=== PATIENT | male | born 1970 | race Hispanic/Latino ===

== ENCOUNTER 2018-04-06 16:44 | Emergency (ER) | payer MEDICARE ==
[2018-04-06 18:06] LABS: RAPID GROUP A STREP NEGATIVE (NEGATIVE)
== END 2018-04-06 18:23 | disposition home or self-care (01) ==
LOC: EDH 16:44
DX: J06.9 Acute upper respiratory infection, unspecified (principal)
CPT/HCPCS: 87804; 87880

== ENCOUNTER 2018-04-17 18:58 | Emergency (ER) | payer MEDICARE ==
[2018-04-17 19:23] LABS: APPEARANCE,URINE Clear (CLEAR); BILIRUBIN,URINE Negative (NEGATIVE); COLOR,URINE Yellow (YELLOW); GLUCOSE, URINE (UA) Negative (NEGATIVE); KETONES,URINE Negative (NEGATIVE); LEUKOCYTE ESTERASE ,URINE Negative (NEGATIVE); NITRATE,URINE Negative (NEGATIVE); OCCULT BLOOD,URINE Negative (NEGATIVE); PROTEIN,URINE POS 1+ (NEGATIVE)
[2018-04-17 19:36] LABS: HYALINE CASTS, URINE 0-1 /LPF (0-1 /LPF)
[2018-04-17 19:37] LABS: FINE GRANULAR CASTS,URINE 0-2 /LPF (None Seen)
[2018-04-17 19:38] LABS: AMORPHOUS SEDIMENT,UR Trace /LPF (None Seen)
[2018-04-17 19:39] LABS: BASOPHILS % (AUTO) 0.2 % (0.0-5.0); EOSINOPHILS % (AUTO) 0.6 % (0.0-8.0); HEMATOCRIT 45.2 % (42-54); LYMPHOCYTES % (AUTO) 4.8 % (21.0-51.0); MEAN CORPUSCULAR HEMOGLOBIN 31.5 pg (27.0-33.0); MEAN CORPUSCULAR HGB CONC 34.5 g/dL (32.0-36.0); MEAN CORPUSCULAR VOLUME 91.2 fL (79-99); MONOCYTES % (AUTO) 3.5 % (3.0-13.0); NEUTROPHILS % (AUTO) 90.9 % (40.0-77.0); PLATELET COUNT (AUTO) 232 K/uL (130-400); RED BLOOD CELL COUNT(AUTO) 4.96 MIL/uL (4.50-6.20); RED CELL DISTRIBUTION WIDTH 12.9 % (11.0-15.5); WHITE BLOOD COUNT (AUTO) 10.5 K/uL (4.8-10.8)
[2018-04-17 19:39] LABS: BACTERIA,URINE Many /HPF (None Seen)
[2018-04-17 19:40] LABS: MUCUS,URINE Moderate LPF (None Seen); RBC,URINE 0-1 /HPF (0-1)
[2018-04-17 20:05] LABS: POTASSIUM 3.5 mmol/L (3.5-5.1)
[2018-04-17 20:11] LABS: BILIRUBIN,TOTAL 0.7 mg/dL (0.2-1.0); TOTAL PROTEIN, SERUM 7.9 g/dL (6.0-8.3)
[2018-04-17] MEDS ORDERED: SODIUM CHLORIDE 0.9% 1000ML 1,000 ML IV ONE (20:15)
[2018-04-17] MEDS ORDERED: ONDANSETRON HCL 4 MG/2 ML VIAL ONE (20:15)
[2018-04-17] MEDS ORDERED: FAMOTIDINE/PF 20 MG/2 ML VIAL IV ONE (20:26)
[2018-04-17] MEDS ORDERED: ACETAMINOPHEN 325 MG TAB ONE (20:26)
[2018-04-17] MEDS ORDERED: LIDOCAINE HCL 2% VISCOUS 15 ML UDCUP ONE (20:27)
[2018-04-17] MEDS ORDERED: MAG HYDROX/AL HYDROX/SIMETH ES 30 ML SUSP UDCUP ONE (20:27)
== END 2018-04-18 00:05 | disposition home or self-care (01) ==
LOC: EDH 18:58
DX: K29.00 Acute gastritis without bleeding (principal); B96.81 Helicobacter pylori [H. pylori] as the cause of diseases classified elsewhere; I10 Essential (primary) hypertension; H91.8X9 Other specified hearing loss, unspecified ear; Z98.890 Other specified postprocedural states
CPT/HCPCS: 36415; 80053; 81001; 82150; 83690; 85025; 86677; 93005; 96361; 96374; 96375; 99285; J2405; J3490; J7030

== ENCOUNTER 2019-03-22 14:52 | Observation (INO) | payer MEDICARE ==
[~2019-03-22] VITALS: Ht 170.2 cm; Wt 114.3 kg
[2019-03-22] MEDS ORDERED: ASPIRIN 325 MG TABLET ONE (15:03)
[2019-03-22 15:08] LABS: BASOPHILS % (AUTO) 0.5 % (0.0-5.0); EOSINOPHILS % (AUTO) 3.5 % (0.0-8.0); HEMATOCRIT 42.3 % (42-54); LYMPHOCYTES % (AUTO) 27.1 % (21.0-51.0); MEAN CORPUSCULAR HEMOGLOBIN 31.7 pg (27.0-33.0); MEAN CORPUSCULAR HGB CONC 35.2 g/dL (32.0-36.0); MEAN CORPUSCULAR VOLUME 89.9 fL (79-99); NEUTROPHILS % (AUTO) 61.9 % (40.0-77.0); PLATELET COUNT (AUTO) 243 K/uL (130-400); RED CELL DISTRIBUTION WIDTH 12.6 % (11.0-15.5); WHITE BLOOD COUNT (AUTO) 8.4 K/uL (4.8-10.8)
[2019-03-22] MEDS ORDERED: NITROGLYCERIN 0.4 MG SL TAB SL ONE (15:10)
[2019-03-22 15:20] LABS: CREATININE 0.9 mg/dL (0.5-1.5); POTASSIUM 3.5 mmol/L (3.5-5.1)
[2019-03-22 15:23] LABS: ALBUMIN 3.8 g/dL (3.5-5.0); BILIRUBIN,TOTAL 0.6 mg/dL (0.2-1.0); TOTAL PROTEIN, SERUM 7.6 g/dL (6.0-8.3)
[2019-03-22] MEDS ORDERED: SODIUM CHLORIDE 0.9% 500ML 500 ML IV ONE (15:33)
[2019-03-22] MEDS ORDERED: MORPHINE SULFATE 2 MG/ML 1ML SYG IV PRN (17:15)
[2019-03-22] MEDS ORDERED: MORPHINE SULFATE 4 MG/1ML SYG IV PRN (17:15)
[2019-03-22] MEDS ORDERED: NITROGLYCERIN 0.4 MG SL TAB SL PRN (17:15)
[2019-03-22] MEDS ORDERED: HYDRALAZINE HCL 20 MG/ML VIAL IV PRN (17:15)
[2019-03-22 17:41] LABS: CHOLESTEROL 200 mg/dL (<200); HDL CHOLESTEROL 40 mg/dL (29-71); LDL DIRECT 138 mg/dL (0-99); TRIGLYCERIDES 134 mg/dL (30-200)
[2019-03-22] MEDS ORDERED: METOPROLOL TARTRATE 25 MG TAB ONE (23:22)
[2019-03-22] MEDS ORDERED: FAMOTIDINE/PF 20 MG/2 ML VIAL IV ONE (23:22)
[2019-03-23 05:37] LABS: BASOPHILS % (AUTO) 0.3 % (0.0-5.0); EOSINOPHILS % (AUTO) 4.5 % (0.0-8.0); HEMATOCRIT 39.7 % (42-54); MEAN CORPUSCULAR HEMOGLOBIN 31.9 pg (27.0-33.0); MEAN CORPUSCULAR HGB CONC 35.4 g/dL (32.0-36.0); MEAN CORPUSCULAR VOLUME 90.1 fL (79-99); MONOCYTES % (AUTO) 8.8 % (3.0-13.0); NEUTROPHILS % (AUTO) 50.4 % (40.0-77.0); NUCLEATED RED BLOOD CELLS 0.1 % (0.0-0.19); PLATELET COUNT (AUTO) 228 K/uL (130-400); RED BLOOD CELL COUNT(AUTO) 4.41 MIL/uL (4.50-6.20); RED CELL DISTRIBUTION WIDTH 12.7 % (11.0-15.5); WHITE BLOOD COUNT (AUTO) 7.8 K/uL (4.8-10.8)
[2019-03-23 05:48] LABS: ALBUMIN 3.5 g/dL (3.5-5.0); BILIRUBIN,TOTAL 0.5 mg/dL (0.2-1.0); CREATININE 0.8 mg/dL (0.5-1.5); POTASSIUM 3.7 mmol/L (3.5-5.1); TOTAL PROTEIN, SERUM 7.1 g/dL (6.0-8.3)
[2019-03-23] MEDS ORDERED: HYDRALAZINE HCL 20 MG/ML VIAL ONE (06:40)
[2019-03-23] MEDS ORDERED: MORPHINE SULFATE 2 MG/ML 1ML SYG ONE (06:54)
[2019-03-23] MEDS ORDERED: METOPROLOL TARTRATE 25 MG TAB ONE (07:19)
[2019-03-23] MEDS ORDERED: ATORVASTATIN CALCIUM 40 MG TABLET ONE (07:19)
[2019-03-23] MEDS ORDERED: ENOXAPARIN SODIUM 40 MG/0.4 ML SYRINGE SQ ONE (07:19)
[2019-03-23] MEDS ORDERED: FAMOTIDINE/PF 20 MG/2 ML VIAL IV ONE (07:19)
[2019-03-23 08:28] VITALS: BP 154/90
[2019-03-23] MEDS: FAMOTIDINE/PF 20 MG/2 ML VIAL IV SCH ×2 (08:49→21:01)
[2019-03-23] MEDS: ATORVASTATIN CALCIUM 40 MG TABLET PO SCH (08:49)
[2019-03-23] MEDS: METOPROLOL TARTRATE 25 MG TAB PO SCH ×2 (08:49→21:01)
[2019-03-23] MEDS: ENOXAPARIN SODIUM 40 MG/0.4 ML SYRINGE SQ SCH (08:49)
--- NOTE | 2019-03-23 11:12 | NUR ---
DR. DODD IN ROOM WITH PT. AND PT.'S SON; SON INTERPRETING FOR DR. DODD.
[2019-03-23] MEDS ORDERED: IBUP-2070 PO (11:13)
[2019-03-23] MEDS: IBUPROFEN 600 MG TABLET PO PRN (11:41)
[2019-03-23 11:51] VITALS: BP 154/105
[2019-03-23 12:48] VITALS: BP 174/87
--- NOTE | 2019-03-23 13:02 | NUR ---
cm note met with patient and with son RG, pt is deaf and mute, but son uses sign language for translating, pt independent with ambulation and adls, no DME. no services at home. pt drives. goes to [facility] for followup. and dc plan is back to same home setting feels safe to [place] has sons that assist with any needs. pt has a text only phone, [phone] if needed. Addendum: 03/23/19 at 1304 by DAMI LOZANO CM Amended: Links added.
[2019-03-23] MEDS ORDERED: METOPROLOL TARTRATE 25 MG TAB PO SCH (13:15)
[2019-03-23] MEDS ORDERED: LISI-613 PO (13:58)
--- NOTE | 2019-03-23 13:58 | NUR ---
PER PT.'S SISTER AT BEDSIDE, PT. "TAKES LISINOPRIL 20MG TWO TIMES A DAY. THAT'S THE ONLY MEDICATION HE TAKES." HOME MED LIST UPDATED.
[2019-03-23] MEDS ORDERED: KETOROLAC TROMETHAMINE 30MG/ML IV SCH (15:00)
[2019-03-23] MEDS: LISINOPRIL 20 MG TABLET PO SCH ×2 (15:16→21:02)
[2019-03-23 15:32] VITALS: BP 140/89
[2019-03-23 19:52] VITALS: BP 126/70
--- NOTE | 2019-03-23 20:30 | NUR ---
Assessment Patient AOX3, and ambulatory. Patient sister and pt son at bedside. Patient is able to read and write on paper. Patient states currently has no pain and feels good. Patient reinforced to use call light if needs assistance and verbalizes understanding.
[2019-03-23] MEDS ORDERED: LISINOPRIL 20 MG TABLET PO SCH (21:00)
[2019-03-23 23:26] VITALS: BP 148/97
[2019-03-24] MEDS: IBUPROFEN 600 MG TABLET PO PRN (01:01)
--- NOTE | 2019-03-24 01:07 | NUR ---
Pain Patient stated has right chest pain at 1255am scale of 3 from 1-10. Gave Ibuprofen as per pain range. Will follow up in 1 hr. Patient was observed eating outside food left by family at bedside while watching television. I advised patient not to be eating outside food and to follow a cardiac healthy diet from now on. Patient verbalizes understanding of instructions.
[2019-03-24 03:32] VITALS: BP 119/69
[2019-03-24 05:50] LABS: BASOPHILS % (AUTO) 0.5 % (0.0-5.0); EOSINOPHILS % (AUTO) 3.7 % (0.0-8.0); HEMATOCRIT 40.5 % (42-54); LYMPHOCYTES % (AUTO) 35.2 % (21.0-51.0); MEAN CORPUSCULAR HEMOGLOBIN 31.9 pg (27.0-33.0); MEAN CORPUSCULAR HGB CONC 35.1 g/dL (32.0-36.0); MEAN CORPUSCULAR VOLUME 90.9 fL (79-99); NEUTROPHILS % (AUTO) 51.6 % (40.0-77.0); PLATELET COUNT (AUTO) 238 K/uL (130-400); RED BLOOD CELL COUNT(AUTO) 4.46 MIL/uL (4.50-6.20); WHITE BLOOD COUNT (AUTO) 8.4 K/uL (4.8-10.8)
[2019-03-24 06:06] LABS: ALBUMIN 3.6 g/dL (3.5-5.0); BILIRUBIN,TOTAL 0.6 mg/dL (0.2-1.0); POTASSIUM 3.9 mmol/L (3.5-5.1); TOTAL PROTEIN, SERUM 7.3 g/dL (6.0-8.3)
[2019-03-24 07:00] VITALS: BP 158/97
[2019-03-24] MEDS: ATORVASTATIN CALCIUM 40 MG TABLET PO SCH (10:23)
[2019-03-24] MEDS: METOPROLOL TARTRATE 25 MG TAB PO SCH (10:23)
[2019-03-24] MEDS: ENOXAPARIN SODIUM 40 MG/0.4 ML SYRINGE SQ SCH (10:23)
[2019-03-24] MEDS: LISINOPRIL 20 MG TABLET PO SCH (10:23)
[2019-03-24] MEDS: FAMOTIDINE/PF 20 MG/2 ML VIAL IV SCH (10:23)
[2019-03-24 11:00] VITALS: BP 167/87
[2019-03-24] MEDS ORDERED: PRAV40TA3 PO (11:11)
[2019-03-24] MEDS ORDERED: METO25TA6 PO (11:11)
--- NOTE | 2019-03-24 12:50 | NUR ---
DISCHARGE INSTRUCTIONS/INFORMATION GIVEN TO PATIENT AND SON FROYLAN. BOTH UNDERSTOOD NEW MEDICATIONS PRESCRIBED, PROPER DIET, S/S TO MONITOR FOR,WHEN TO CALL MD, AND FOLLOW UP APPOINTMENT. PIV REMOVED. TIP WAS INTACT. TELE PACK REMOVED AND RETURNED. ALL BELONGINGS WERE PACKED BY PATIENT. NEW PRESCRIPTIONS WERE INCLUDED IN DISCHARGE PACKET.
== END 2019-03-24 13:20 | disposition home or self-care (01) ==
LOC: EDH 14:52 → EDHIP 16:55 → INTOOBSV 16:55 → 4BH 20:54 → EDHIP 22:31 → 2DH 03-23 08:34
PROVIDERS: ADMIT Family Medicine; ATTEND Family Medicine
DX: R07.89 Other chest pain (principal); R06.09 Other forms of dyspnea; I10 Essential (primary) hypertension; M94.0 Chondrocostal junction syndrome [Tietze]; R73.9 Hyperglycemia, unspecified; B34.9 Viral infection, unspecified; H91.3 Deaf nonspeaking, not elsewhere classified; Z79.899 Other long term (current) drug therapy
CPT/HCPCS: 36415 ×3; 71045; 80053 ×3; 80061; 82550; 83690; 83880; 84484 ×3; 85025 ×3; 85378; 87804 ×2; 93005 ×2; 96372; 96374; 96375; 96376; 99284; G0378 ×26; J0360 ×2; J1650 ×2; J1885; J3490 ×4; J7040

== ENCOUNTER 2019-07-19 17:30 | Emergency (ER) | payer MEDICARE ==
[~2019-07-19 17:30] MED LIST: IBUP-2070 PO; LISI-613 PO; METO25TA6 PO; PRAV40TA3 PO
[2019-07-19 18:27] LABS: BASOPHILS % (AUTO) 0.2 % (0.0-5.0); EOSINOPHILS % (AUTO) 1.9 % (0.0-8.0); HEMATOCRIT 41.7 % (42-54); LYMPHOCYTES % (AUTO) 25.9 % (21.0-51.0); MEAN CORPUSCULAR HEMOGLOBIN 30.8 pg (27.0-33.0); MEAN CORPUSCULAR HGB CONC 34.8 g/dL (32.0-36.0); MEAN CORPUSCULAR VOLUME 88.5 fL (79-99); NEUTROPHILS % (AUTO) 61.6 % (40.0-77.0); PLATELET COUNT (AUTO) 269 K/uL (130-400); RED BLOOD CELL COUNT(AUTO) 4.71 MIL/uL (4.50-6.20); RED CELL DISTRIBUTION WIDTH 12.1 % (11.0-15.5); WHITE BLOOD COUNT (AUTO) 10.5 K/uL (4.8-10.8)
[2019-07-19 18:30] LABS: APPEARANCE,URINE Clear (CLEAR); BILIRUBIN,URINE Negative (NEGATIVE); COLOR,URINE Yellow (YELLOW); GLUCOSE, URINE (UA) Negative (NEGATIVE); KETONES,URINE Negative (NEGATIVE); LEUKOCYTE ESTERASE ,URINE Negative (NEGATIVE); NITRATE,URINE Negative (NEGATIVE); OCCULT BLOOD,URINE Negative (NEGATIVE); PH,URINE 5.5 (5.0-8.0); PROTEIN,URINE Trace mg/dL (NEGATIVE)
[2019-07-19 18:35] LABS: CREATININE 1.1 mg/dL (0.5-1.5); POTASSIUM 3.2 mmol/L (3.5-5.1)
[2019-07-19 18:38] LABS: INR 0.99 (0.85-1.15); PROTHROMBIN TIME 10.4 SEC (9.6-11.6)
[2019-07-19 18:39] LABS: BILIRUBIN,TOTAL 0.5 mg/dL (0.2-1.0); TOTAL PROTEIN, SERUM 7.6 g/dL (6.0-8.3)
[2019-07-19 18:39] LABS: AMPHET/METH SCREEN,URINE NEGATIVE (NEGATIVE); BARBITURATE SCREEN, URINE NEGATIVE (NEGATIVE); BENZODIAZEPINES SCREEN,URINE NEGATIVE (NEGATIVE); CANNABINOID SCREEN,URINE NEGATIVE (NEGATIVE); COCAINE SCREEN,URINE NEGATIVE (NEGATIVE); OPIATE SCREEN,URINE NEGATIVE (NEGATIVE); PHENCYCLIDINE SCREEN,URINE NEGATIVE (NEGATIVE)
[2019-07-19 19:09] LABS: BACTERIA,URINE None Seen /HPF (None Seen); MUCUS,URINE Moderate LPF (None Seen); RBC,URINE None Seen /HPF (0-1); SQUAMOUS EPITHELIAL CELL,UR Few /HPF (0-2); WBC,URINE None Seen /HPF (0-1)
[2019-07-19 19:26] LABS: B-TYPE NATRIURETIC PEPTIDE 7 pg/mL (0-100)
[2019-07-19] MEDS ORDERED: DiphenhydrAMINE HCL 50 MG/ML VIAL ONE (20:14)
[2019-07-19] MEDS ORDERED: KETOROLAC TROMETHAMINE 30MG/ML ONE (20:14)
[2019-07-19] MEDS ORDERED: POTASSIUM CHLORIDE 10% ELIXIR 20 MEQ/15 ML UDCUP ONE (20:14)
== END 2019-07-19 21:24 | disposition home or self-care (01) ==
LOC: EDH 17:30
DX: I10 Essential (primary) hypertension (principal); R51 Headache; Z98.890 Other specified postprocedural states
CPT/HCPCS: 36415; 70450; 71045; 80053; 80305; 81001; 82550; 83880; 84484; 85025; 85610; 85730; 87804 ×2; 93005; 96374; 96375; 99285; J1200; J1885

== ENCOUNTER 2019-09-14 00:38 | Emergency (ER) | payer MEDICARE ==
[2019-09-14] MEDS ORDERED: ONDANSETRON HCL 4 MG/2 ML VIAL ONE (01:06)
[2019-09-14] MEDS ORDERED: ACETAMINOPHEN 325 MG TAB ONE (01:06)
[2019-09-14] MEDS ORDERED: LIDOCAINE 5% TOPICAL PATCH TP ONE (01:09)
[2019-09-14] MEDS ORDERED: KETOROLAC TROMETHAMINE 60 MG/2 ML VIAL ONE (01:09)
[2019-09-14] MEDS ORDERED: CYCLOBENZAPRINE HCL 10 MG TABLET ONE (01:10)
[2019-09-14 01:12] LABS: BASOPHILS % (AUTO) 0.1 % (0.0-5.0); EOSINOPHILS % (AUTO) 2.1 % (0.0-8.0); HEMATOCRIT 41.4 % (42-54); LYMPHOCYTES % (AUTO) 34.2 % (21.0-51.0); MEAN CORPUSCULAR HEMOGLOBIN 31.1 pg (27.0-33.0); MEAN CORPUSCULAR HGB CONC 35.7 g/dL (32.0-36.0); NEUTROPHILS % (AUTO) 54.5 % (40.0-77.0); PLATELET COUNT (AUTO) 248 K/uL (130-400); RED BLOOD CELL COUNT(AUTO) 4.76 MIL/uL (4.50-6.20)
[2019-09-14 01:14] LABS: BILIRUBIN,URINE Negative (NEGATIVE); COLOR,URINE Yellow (YELLOW); GLUCOSE, URINE (UA) Negative (NEGATIVE); KETONES,URINE Negative (NEGATIVE); LEUKOCYTE ESTERASE ,URINE Negative (NEGATIVE); NITRATE,URINE Negative (NEGATIVE); OCCULT BLOOD,URINE Negative (NEGATIVE); PH,URINE 5.5 (5.0-8.0); PROTEIN,URINE Negative (NEGATIVE)
[2019-09-14 01:20] LABS: APPEARANCE,URINE CLEAR (CLEAR)
[2019-09-14 01:23] LABS: CREATININE 0.9 mg/dL (0.5-1.5); POTASSIUM 3.7 mmol/L (3.5-5.1)
[2019-09-14 01:28] LABS: ALBUMIN 3.7 g/dL (3.5-5.0); BILIRUBIN,TOTAL 0.5 mg/dL (0.2-1.0); TOTAL PROTEIN, SERUM 7.7 g/dL (6.0-8.3)
== END 2019-09-14 03:43 | disposition home or self-care (01) ==
LOC: EDH 00:38
DX: E86.9 Volume depletion, unspecified (principal); R42 Dizziness and giddiness; F43.9 Reaction to severe stress, unspecified; I10 Essential (primary) hypertension
CPT/HCPCS: 36415; 70450; 80053; 81003; 84484; 85025; 93005; 96361; 96374; 99285; J1885; J2405

== ENCOUNTER 2020-03-12 16:28 | Emergency (ER) | payer OTHER ==
[2020-03-12] MEDS ORDERED: IBUPROFEN 600 MG TABLET ONE (16:50)
== END 2020-03-12 19:20 | disposition home or self-care (01) ==
LOC: EDH 16:28
DX: S63.592A Other specified sprain of left wrist, initial encounter (principal); I10 Essential (primary) hypertension; Z72.0 Tobacco use; W18.39XA Other fall on same level, initial encounter; Y93.01 Activity, walking, marching and hiking; Y92.511 Restaurant or cafe as the place of occurrence of the external cause; Y99.8 Other external cause status
CPT/HCPCS: 73110

== ENCOUNTER 2020-07-12 12:02 | Emergency (ER) | payer OTHER ==
[2020-07-12] MEDS ORDERED: KETOROLAC TROMETHAMINE 30MG/ML ONE (16:22)
[2020-07-12] MEDS ORDERED: ORPHENADRINE CITRATE 30 MG/ML ML ONE (16:22)
== END 2020-07-12 17:30 | disposition home or self-care (01) ==
LOC: EDH 12:02
DX: S40.011A Contusion of right shoulder, initial encounter (principal); I10 Essential (primary) hypertension; Z98.890 Other specified postprocedural states; X50.9XXA Other and unspecified overexertion or strenuous movements or postures, initial encounter; Y93.89 Activity, other specified; Y92.89 Other specified places as the place of occurrence of the external cause; Y99.8 Other external cause status
CPT/HCPCS: 73030; 96372 ×2; 99284; J1885; J2360

== ENCOUNTER 2020-11-23 12:36 | Emergency (ER) | payer OTHER ==
[~2020-11-23 12:36] MED LIST changes: -LISI-613 PO; +LISI20TA24 PO
[2020-11-23 13:14] LABS: BASOPHILS % (AUTO) 0.3 % (0.0-5.0); EOSINOPHILS % (AUTO) 2.4 % (0.0-8.0); HEMATOCRIT 40.8 % (42-54); LYMPHOCYTES % (AUTO) 32.7 % (21.0-51.0); MEAN CORPUSCULAR HEMOGLOBIN 31.4 pg (27.0-33.0); MEAN CORPUSCULAR HGB CONC 35.8 g/dL (32.0-36.0); MEAN CORPUSCULAR VOLUME 87.7 fL (79-99); NEUTROPHILS % (AUTO) 55.3 % (40.0-77.0); PLATELET COUNT (AUTO) 227 K/uL (130-400); RED BLOOD CELL COUNT(AUTO) 4.65 MIL/uL (4.50-6.20); RED CELL DISTRIBUTION WIDTH 12.3 % (11.0-15.5); WHITE BLOOD COUNT (AUTO) 7.4 K/uL (4.8-10.8)
[2020-11-23 13:31] LABS: CREATININE 0.8 mg/dL (0.5-1.5); POTASSIUM 3.3 mmol/L (3.5-5.1)
[2020-11-23 13:35] LABS: INR 1.04 (0.85-1.15); PROTHROMBIN TIME 11.3 SEC (9.6-11.6)
[2020-11-23 13:36] LABS: PARTIAL THROMBOPLASTIN TIME 28.5 SEC (26.3-35.5)
[2020-11-23 13:43] LABS: ALBUMIN 3.9 g/dL (3.5-5.0); BILIRUBIN,TOTAL 0.6 mg/dL (0.2-1.0); TOTAL PROTEIN, SERUM 7.5 g/dL (6.0-8.3)
== END 2020-11-23 16:37 | disposition home or self-care (01) ==
LOC: EDH 12:36
DX: G40.909 Epilepsy, unspecified, not intractable, without status epilepticus (principal); G83.84 Todd's paralysis (postepileptic); Z98.890 Other specified postprocedural states
CPT/HCPCS: 36415; 70450; 80053; 82948; 85025; 85610; 85730; 93005

== ENCOUNTER 2021-02-17 15:04 | Emergency (ER) | payer OTHER ==
[~2021-02-17] VITALS: Ht 167.6 cm; Wt 116.1 kg
[2021-02-17 15:06] VITALS: BP 165/94
[2021-02-17] MEDS ORDERED: HYDROCODONE/ACETAMINOPHEN 10/325 MG TAB ONE (15:49)
[2021-02-17] MEDS ORDERED: HYDROCODONE/ACETAMINOPHEN 10/325 MG TAB PO ONE (16:00)
[2021-02-17] MEDS ORDERED: NAPR-1180 PO (16:17)
== END 2021-02-17 16:49 | disposition home or self-care (01) ==
LOC: EDH 15:04
DX: S63.681A Other sprain of right thumb, initial encounter (principal); I10 Essential (primary) hypertension; G40.909 Epilepsy, unspecified, not intractable, without status epilepticus; Z79.899 Other long term (current) drug therapy; X50.0XXA Overexertion from strenuous movement or load, initial encounter; Y93.89 Activity, other specified; Y92.096 Garden or yard of other non-institutional residence as the place of occurrence of the external cause; Y99.0 Civilian activity done for income or pay
CPT/HCPCS: 29125; 73100; 73120

== ENCOUNTER 2021-07-22 09:10 | Emergency (ER) | payer OTHER ==
[~2021-07-22] VITALS: Ht 170.2 cm; Wt 117.9 kg
[~2021-07-22 09:10] MED LIST changes: +NAPR-1180 PO
[2021-07-22] MEDS ORDERED: METH4TAB3 PO (10:38)
[2021-07-22] MEDS ORDERED: IBUP-2070 PO (10:38)
[2021-07-22] MEDS ORDERED: D-ME118S47 PO (10:38)
[2021-07-22 10:55] VITALS: BP 138/76
== END 2021-07-22 11:00 | disposition home or self-care (01) ==
LOC: EDH 09:10
DX: U07.1 COVID-19 (principal); I10 Essential (primary) hypertension; Z79.1 Long term (current) use of non-steroidal anti-inflammatories (NSAID); Z79.899 Other long term (current) drug therapy
CPT/HCPCS: 87635; 87804 ×2; 99283; C9803

== ENCOUNTER 2021-11-20 06:14 | Emergency (ER) | payer OTHER ==
[~2021-11-20] VITALS: Ht 170.2 cm; Wt 120.7 kg
[~2021-11-20 06:14] MED LIST changes: +D-ME118S47 PO; +METH4TAB3 PO
[2021-11-20 08:40] VITALS: BP 128/68
[2021-11-20] MEDS ORDERED: IBUP-2070 PO (08:40)
[2021-11-20] MEDS ORDERED: CYCL10TA16 PO (08:40)
[2021-11-20] MEDS ORDERED: KETOROLAC 15MG/ML VIAL (15MG/ML) IM SCH (09:00)
[2021-11-20] MEDS ORDERED: LIDOCAINE 5% TOPICAL PATCH TP SCH (09:00)
[2021-11-20] MEDS ORDERED: CYCLOBENZAPRINE HCL 10 MG TABLET PO SCH (09:00)
== END 2021-11-20 08:45 | disposition home or self-care (01) ==
LOC: EDH 06:14
DX: M43.6 Torticollis (principal); M54.2 Cervicalgia; I10 Essential (primary) hypertension; Z98.890 Other specified postprocedural states; Z79.899 Other long term (current) drug therapy

== ENCOUNTER 2022-02-20 23:07 | Emergency (ER) | payer OTHER ==
[~2022-02-20] VITALS: Ht 170.2 cm; Wt 117.9 kg
[~2022-02-20 23:07] MED LIST changes: +CYCL10TA16 PO
[2022-02-20 23:09] VITALS: BP 156/83
[2022-02-20] MEDS ORDERED: ACETAMINOPHEN 500 MG TABLET ONE (23:48)
[2022-02-21] MEDS ORDERED: ACETAMINOPHEN 500 MG TABLET PO ONE
[2022-02-21] MEDS ORDERED: IBUP-2070 PO (00:15)
[2022-02-21] MEDS ORDERED: ACET-2079 PO (00:15)
== END 2022-02-21 00:23 | disposition home or self-care (01) ==
LOC: EDH 23:07
DX: M25.511 Pain in right shoulder (principal); E78.00 Pure hypercholesterolemia, unspecified; I10 Essential (primary) hypertension; Z79.1 Long term (current) use of non-steroidal anti-inflammatories (NSAID); Z79.52 Long term (current) use of systemic steroids; E66.9 Obesity, unspecified; Z68.41 Body mass index [BMI] 40.0-44.9, adult; X50.0XXA Overexertion from strenuous movement or load, initial encounter; Y93.89 Activity, other specified; Y92.89 Other specified places as the place of occurrence of the external cause; Y99.8 Other external cause status
CPT/HCPCS: 73030

== ENCOUNTER 2023-08-31 17:14 | Emergency (ER) | payer OTHER ==
[~2023-08-31] VITALS: Ht 170.2 cm; Wt 117.9 kg
[~2023-08-31 17:14] MED LIST changes: +ACET-2079 PO; +BROM118S48 PO; -D-ME118S47 PO
[2023-08-31 19:48] LABS: BASOPHILS # (AUTO) 0.02 K/uL (0.00-0.20); BASOPHILS % (AUTO) 0.3 % (0.0-5.0); EOSINOPHILS # (AUTO) 0.22 K/uL (0.00-0.70); EOSINOPHILS % (AUTO) 2.9 % (0.0-8.0); HEMATOCRIT 39.9 % (42-54); IMMATURE GRANULOCYTE ABSOLUTE 0.02 K/uL (0-1); LYMPHOCYTES # (AUTO) 2.7 K/uL (1.0-4.8); LYMPHOCYTES % (AUTO) 35.5 % (21.0-51.0); MEAN CORPUSCULAR HEMOGLOBIN 31.6 pg (27.0-33.0); MEAN CORPUSCULAR HGB CONC 36.6 g/dL (32.0-36.0); MEAN CORPUSCULAR VOLUME 86.4 fL (79-99); MONOCYTES # (AUTO) 0.7 K/uL (0.1-1.0); MONOCYTES % (AUTO) 8.8 % (3.0-13.0); NEUTROPHILS % (AUTO) 52.2 % (40.0-77.0); PLATELET COUNT (AUTO) 279 K/uL (130-400); RED BLOOD CELL COUNT(AUTO) 4.62 MIL/uL (4.50-6.20); RED CELL DISTRIBUTION WIDTH 12.3 % (11.0-15.5); WHITE BLOOD COUNT (AUTO) 7.7 K/uL (4.8-10.8)
[2023-08-31 19:58] LABS: CREATININE 0.9 mg/dL (0.5-1.5); POTASSIUM 3.5 mmol/L (3.5-5.1)
[2023-08-31 20:03] LABS: ALBUMIN 3.8 g/dL (3.5-5.0); BILIRUBIN,TOTAL 0.4 mg/dL (0.2-1.0); TOTAL PROTEIN, SERUM 7.5 g/dL (6.0-8.3)
[2023-08-31] MEDS ORDERED: NAPR-1023 PO (21:34)
[2023-08-31] MEDS ORDERED: ACET-2079 PO (21:34)
[2023-08-31] MEDS ORDERED: METH4TAB3 PO (21:34)
[2023-08-31] MEDS ORDERED: CYCL5TAB PO (21:34)
[2023-08-31 22:14] VITALS: BP 172/72; PULSE 72; RESP 18; O2SAT 98
[2023-08-31] MEDS: HYDROCODONE/ACETAMINOPHEN 5/325 MG TAB PO ONE (22:19)
[2023-08-31] MEDS: KETOROLAC 60 MG VIAL (30MG/ML) IM ONE (22:19)
== END 2023-08-31 22:31 | disposition home or self-care (01) ==
LOC: EDH 17:14
DX: M25.512 Pain in left shoulder (principal); M75.22 Bicipital tendinitis, left shoulder; E78.00 Pure hypercholesterolemia, unspecified; E66.9 Obesity, unspecified; I10 Essential (primary) hypertension; Z59.00 Homelessness unspecified; Z59.7 Insufficient social insurance and welfare support; Z68.41 Body mass index [BMI] 40.0-44.9, adult
CPT/HCPCS: 99285; 71045; 84484; 80053; 85025; 36415; 73030; 96372; 93005; J1885